=== PATIENT | male | born 1940 | race Caucasian/White ===

== ENCOUNTER 2017-06-26 11:30 | Emergency (ER) | payer OTHER ==
[2017-06-26 11:58] VITALS: BP 109/74; BMI 30.7
--- NOTE | 2017-06-26 12:20 | DR.SOBA ---
HPI - Time Seen Time seen: 12:20 - Primary Care Physician Primary Care Physician: DR. HE - HPI Comment HPI Comment: HISTORY BELOW. - Complaints Chief Complaint Doctors Comments: SOB, EDEMA LOWER EXTREMITIES. Chief Complaint:: PT HAS A PACEMAKER AND HE C/O > SOB, AND EDEMA TO HIS LOWER EXTS... Self Treatment fo Chief Complaint: 2 PLUS PITTING EDEMA NOTED TO PTS RIGHT LOWER EXTS. PT'S RESP ARE EVEN AND NON-LABORDED SOME SLIGHT EXP WHEEZES NOTED TO PTS RIGHT SIDE.. - Reviewed Nurses Notes Reviewed: Yes - Source History Provided: Patient, Family Member - Mode of Arrival Mode of Arrival: Ambulatory - Timing Onset of Chief Complaint: 06/25/17 - Duration Duration: Days - Context Onset:: At Rest PE Risk Factors:: None History of:: CHF Currently on:: Neither Prehospital Care:: None - Modifying Factors Worsens:: Nothing Improves:: Nothing - Associated Signs and Symptoms Associated Signs and Symptoms: Cough, Leg Swelling - If Chest Pain Quality: Sharp, Heavy Location: Substernal - If Cough Cough: Nonproductive PMH - PMH Past Medical History: Yes Past Medical History: Diabetes Past Medical History Comment: CHF, Past Surgical History: Yes Past Surgical History Comment: PACEMAKER.. , CABG - Family History History of Family Medical Conditions: Yes Family Medical History: [place] - Social History Does patient currently use any type of tobacco product: No Have you used tobacco products in the last 12 months: No Type of Tobacco Use: None Does any household member use tobacco: No Alcohol Use: None Do you use any recreational Drugs:: No Lives With: Family Lives Where: Home - infectious screening In the last 2 months have you had wt loss of >10#?: NO Have you had fever, night sweats or hemotysis?: No Have you traveled outside the country in the last 6 months?: No Isolation: Standard ROS - Review of Systems Constitutional: Weakness, Fatigue. negative: Chills, Fever Eyes: No Symptoms Reported. negative: Eye Pain ENTM: No Symptoms Reported Respiratoy: Non-Productive Cough, Short of Breath, Wheezing Cardiovascular: Chest Pain, Edema Gastrointestinal/Abdominal: No Symptoms Reported Genitourinary: No Symptoms Reported Neurological: Headache, Weakness, Dizziness Musculoskeletal: Back Pain Integumentary: Change in Color Hematologic/Lymphatic: Easy Bleeding Endocrine: No Symptoms Reported All Other Systems: Reviewed and Negative PE - Vital Signs Vitals: Temperature 97.5 F Pulse Rate 60 Respiratory Rate 20 Blood Pressure 109/74 O2 Sat by Pulse Oximetry 94 - General Limitations: No Limitations General Appearance: Alert - Head Head Exam: Normal Inspection - Eyes Eye exam: Normal Appearance - ENT ENT Exam: Normal External Ear Exam - Neck Neck Exam: Normal Inspection - Chest Chest Inspection: Symmetric Chest Wall Rise - Respiratory Respiratory Exam: Respiratory Distress Respiratory Exam: Bilateral Rhonchi, Upper Rhonchi, Lower Rhonchi - Cardiovascular Cardiovascular Exam: Regular Rate, Normal Rhythm, Normal Heart Sounds - Abdominal Exam Abdominal Exam: Normal Bowel Sounds, Soft. negative: Tenderness - Back Back Exam: Normal Inspection - Neurologic Neurological Exam: Alert, Oriented X3, CN II-XII Intact - Psychiatric Psychiatric Exam: Anxious - Skin Skin Exam: Erythema MDM - Additional Information Obtained Additional Information Obtained From: Family - Differential Diagnosis Differential Diagnosis: CHF, Mycardial Infarction, Pneumonia, Pulmonary embolism Differential Diagnosis Comment:: EDEMA Course - Treatment Treatment: SEE ORDERS. - Education/Counseling Education/Counseling: Patient, Family, Education Educated On: Treatment, Diagnosis, Needs for Follow Up ROR - Labs Reviewed Laboratory Results Reviewed?: Yes Result Diagrams: 06/26/17 12:35 06/26/17 12:35 Laboratory: WBC 5.9 X10^3/uL (3.6-10.0) 06/26/17 12:35 RBC 4.82 X10^6/uL (4.7-6.0) 06/26/17 12:35 Hgb 14.2 g/dL (13.5-18.0) 06/26/17 12:35 Hct 42.2 % (42.0-54.0) 06/26/17 12:35 MCV 87.6 fL (80.0-100.0) 06/26/17 12:35 MCH 29.6 pg (27.0-34.0) 06/26/17 12:35 MCHC 33.8 g/dL (33.0-35.0) 06/26/17 12:35 RDW 15.0 % (11.6-16.5) 06/26/17 12:35 Plt Count 125 X10^3/uL (150.0-450.0) L 06/26/17 12:35 MPV 10.5 fL (7.4-11.0) 06/26/17 12:35 Neut % 57.7 % (42.0-75.0) 06/26/17 12:35 Lymph % 30.8 % (21.0-51.0) 06/26/17 12:35 [place] % 9.8 % (0.0-13.0) 06/26/17 12:35 Eos % 0.9 % (0.9-2.9) 06/26/17 12:35 Baso % 0.8 % (0.2-1.0) 06/26/17 12:35 Neut # 3.4 x10^3/uL (2.2-4.8) 06/26/17 12:35 Lymph # 1.8 X10^3/uL (1.3-2.9) 06/26/17 12:35 [place] # 0.6 x10^3/uL (0.3-0.8) 06/26/17 12:35 Eos # 0.1 x10^3/uL (0.0-0.2) 06/26/17 12:35 Baso # 0.0 X10^3/uL (0.0-0.1) 06/26/17 12:35 Absolute Nucleated RBC 0.0 /100WBC 06/26/17 12:35 D-Dimer 2200 ng/mL (0-400) H* 06/26/17 12:35 Sodium 138 mmol/L (136-145) 06/26/17 12:35 Corrected Sodium TNP 06/26/17 12:35 Potassium 3.8 mmol/L (3.5-5.1) 06/26/17 12:35 Chloride 103 mmol/L (98-107) 06/26/17 12:35 Carbon Dioxide 29.4 mmol/L (21-32) 06/26/17 12:35 BUN 24 mg/dL (7-18) H 06/26/17 12:35 Creatinine 1.51 mg/dL (0.70-1.30) H 06/26/17 12:35 Est GFR (MDRD) Af Amer 58 (>60) L 06/26/17 12:35 Est GFR (MDRD) Non-Af 48 (>60) L 06/26/17 12:35 Glucose 89 mg/dL (65-99) 06/26/17 12:35 Calcium 9.2 mg/dL (8.5-10.1) 06/26/17 12:35 Corrected Calcium TNP 06/26/17 12:35 Total Bilirubin 1.60 mg/dL (0.2-1.0) H 06/26/17 12:35 AST 34 Units/L (15-37) 06/26/17 12:35 ALT 41 Units/L (12-78) 06/26/17 12:35 Alkaline Phosphatase 93 Units/L (46-116) 06/26/17 12:35 Creatine Kinase 98 Units/L (39-308) 06/26/17 12:35 CK-MB (CK-2) < 1.0 ng/mL (0-4.0) 06/26/17 12:35 CK/CKMB % Calc 1.0 % (<4) 06/26/17 12:35 Troponin I 0.02 ng/mL (0-1.5) 06/26/17 12:35 B-Natriuretic Peptide 1830 pg/mL (0-79) H* 06/26/17 12:35 Total Protein 6.8 g/dL (6.4-8.2) 06/26/17 12:35 Albumin 3.4 g/dL (3.4-5.0) 06/26/17 12:35 Globulin 3.4 g/dL (2.5-4.5) 06/26/17 12:35 Albumin/Globulin Ratio 1.0 Ratio (1.1-2.1) L 06/26/17 12:35 - XRAY XRAY Interpreted by: Radiologist XRAY Findings: REPORT DISCUSS WITH PATIENT. - Diagnosis Discharge Problem: CHF (congestive heart failure) Qualifiers: Congestive heart failure type: combined Congestive heart failure chronicity: acute on chronic Qualified Code(s): I50.43 - Acute on chronic combined systolic (congestive) and diastolic (congestive) heart failure Chest pain Qualifiers: Chest pain type: intercostal pain Qualified Code(s): R07.82 - Intercostal pain Edema Qualifiers: Edema type: generalized Qualified Code(s): R60.1 - Generalized edema - Discharge Plan Disposition: 01 HOME, SELF-CARE Condition: Stable Prescriptions: Furosemide [Lasix] 40 mg PO QAM #14 tab Potassium Chloride 10 meq PO DAILY #14 tab - Follow ups/Referrals Follow ups/Referrals: NFD,None [Primary Care Provider] - 3 days - Instructions Instructions: Heart Failure, [id number] Additional Instructions: RETURN TO ED IF WORSE.
[2017-06-26 12:44] LABS: BASOPHILS % (AUTO) 0.8 % (0.2-1.0); EOSINOPHILS # (AUTO) 0.1 x10^3/uL (0.0-0.2); EOSINOPHILS % (AUTO) 0.9 % (0.9-2.9); HEMATOCRIT 42.2 % (42.0-54.0); HEMOGLOBIN 14.2 g/dL (13.5-18.0); LYMPHOCYTES # (AUTO) 1.8 X10^3/uL (1.3-2.9); LYMPHOCYTES % (AUTO) 30.8 % (21.0-51.0); MEAN CORPUSCULAR HEMOGLOBIN 29.6 pg (27.0-34.0); MEAN CORPUSCULAR HGB CONC 33.8 g/dL (33.0-35.0); MEAN CORPUSCULAR VOLUME 87.6 fL (80.0-100.0); MEAN PLATELET VOLUME 10.5 fL (7.4-11.0); MONOCYTES # (AUTO) 0.6 x10^3/uL (0.3-0.8); MONOCYTES % (AUTO) 9.8 % (0.0-13.0); NEUTROPHILS # (AUTO) 3.4 x10^3/uL (2.2-4.8); NEUTROPHILS % (AUTO) 57.7 % (42.0-75.0); PLATELET COUNT 125 X10^3/uL (150.0-450.0); RED BLOOD COUNT 4.82 X10^6/uL (4.7-6.0); WHITE BLOOD COUNT 5.9 X10^3/uL (3.6-10.0)
[2017-06-26 13:07] LABS: BLOOD UREA NITROGEN 24 mg/dL (7-18); CALCIUM 9.2 mg/dL (8.5-10.1); CARBON DIOXIDE 29.4 mmol/L (21-32); CHLORIDE 103 mmol/L (98-107); CREATININE 1.51 mg/dL (0.70-1.30); SODIUM 138 mmol/L (136-145); TROPONIN I 0.02 ng/mL (0-1.5); eGFR BLACK RACES 58 (>60); eGFR NON BLACK RACES 48 (>60)
--- NOTE | 2017-06-26 13:07 | RAD ---
HISTORY: Chest pain Study: Single-view chest. Comparison: None. Findings: The trachea is midline. There is a cardiac pacing device on the left. There has been previous median sternotomy and CABG. The cardiac silhouette is enlarged without evidence of congestive heart failure. The lungs are clear without focal consolidation, pleural effusion or pneumothorax. IMPRESSION: 1. Cardiomegaly post median sternotomy and CABG with cardiac pacing device present. 2. The lungs are clear. Reported By:
[2017-06-26 13:09] LABS: ALANINE AMINOTRANSFERASE 41 Units/L (12-78); ALBUMIN 3.4 g/dL (3.4-5.0); ALKALINE PHOSPHATASE 93 Units/L (46-116); ASPARTATE AMINO TRANSFERASE 34 Units/L (15-37); CREATINE KINASE 98 Units/L (39-308); CREATINE KINASE MB < 1.0 ng/mL (0-4.0); TOTAL PROTEIN 6.8 g/dL (6.4-8.2)
[2017-06-26 13:23] LABS: B-TYPE NATRIURETIC PEPTIDE 1830 pg/mL (0-79)
[2017-06-26] MEDS ORDERED: NS 100 ML IV 100 ML IV ONE (15:06)
--- NOTE | 2017-06-26 16:04 | CT ---
Chest CT angiogram: Indication: Shortness of breath, elevated D-dimer, CHF. Comparison: Chest radiograph dated June 26, 2017 at 1242 hr. Technique: Helical CT imaging of the chest was performed following the intravenous administration of 75 mL Omnipaque 350 contrast. Continuous transverse reconstructions as well as multiplanar reformatio ns were provided. In addition, three-dimensional post processing was performed with multiplanar MIP i mages produced. Findings: The injection is adequate. There is no filling defect of the pulmonary arteries to indicate embolism. Reflux of contrast is noted into the IVC. Although not optimized for evaluation, no acute abnormality of the major systemic vascular structures , to include the aorta, is identified. Mild calcified atherosclerosis is present. The heart is enlarg ed, particularly the left atrium and ventricle. There is no pericardial effusion or thoracic adenopat hy. Within the left inferior lower lobe, there is mild atelectasis/scarring. No smooth interlobular septa l thickening is appreciated to suggest pulmonary edema. There is no pneumothorax or pleural effusion. The central airways are patent. There is a low-density lesion of the left kidney, most consistent with a cyst. Otherwise, the imaged abdominal contents are unremarkable. No acute skeletal abnormality or worrisome skeletal lesion is ap preciated. Impression: 1. No acute abnormality of the chest, to include no evidence of pulmonary embolism. 2. Cardiomegaly with evidence of right ventricular dysfunction. However, no significant pulmonary juvencio ma is seen to suggest acute decompensation of CHF. Reported By:
[2017-06-26] MEDS ORDERED: LASIX PO ONE (16:23)
[2017-06-26] MEDS ORDERED: LASIX ONE (16:39)
== END 2017-06-26 16:46 | disposition home or self-care (01) ==
LOC: ER 11:30
DX: I50.43 Acute on chronic combined systolic (congestive) and diastolic (congestive) heart failure (principal); R07.82 Intercostal pain; R60.1 Generalized edema; R79.1 Abnormal coagulation profile
CPT/HCPCS: 36415; 71010; 71275; 80053; 82550; 82553; 83880; 84484; 85025; 85378; 93005; 93010; 96365; 99283; A4222